=== PATIENT | female | born 1965 | race African-American/Black ===

== ENCOUNTER 2017-02-01 23:08 | Emergency (ER) | payer OTHER ==
[~2017-02-01] VITALS: Ht 154.9 cm; Wt 88.0 kg
[~2017-02-01 23:08] MED LIST: ASPI81TA42 PO; INSLAN; METO-323 PO; METO-325 PO; [UNRECOGNIZED DRUG - OTHER] PO
[2017-02-01 23:19] VITALS: BP 120/76
[2017-02-01 23:32] LABS: GLUCOSE,POINT OF CARE 347 MG/DL (70-110)
== END 2017-02-02 00:59 | disposition left against medical advice (07) ==
LOC: EMS 23:10
DX: M79.629 Pain in unspecified upper arm (principal); Z53.21 Procedure and treatment not carried out due to patient leaving prior to being seen by health care provider
CPT/HCPCS: 82962